=== PATIENT | male | born 1960 | race Caucasian/White ===

== ENCOUNTER → 2021-12-28 | Outpatient (CLI) | payer BC ==
--- NOTE | 2021-12-28 16:36 | CTL ---
EXAMINATION TYPE: CT Low Dose Lung DATE OF EXAM ORDERED: 12/28/2021 HISTORY: Personal history of tobacco use. Lung cancer screening CT DLP: 105.[address] CTDI: 3.1 mGy Automated exposure control for dose reduction was used. SCREENING VISIT: First screening visit COMPARISON: None TECHNIQUE: Low dose computed tomography scan was performed through the chest at 1 mm thick sections a nd reconstructed images in multiple planes at 1 mm and [address] DIAGNOSTIC QUALITY: Satisfactory FINDINGS: LUNG NODULES: No concerning pulmonary nodules. Calcified granuloma in the right apex. LUNGS: COPD: Severity: Mild Fibrosis: Severity: None Lymph nodes: None Other findings: None RIGHT PLEURAL SPACE: Effusion: None Calcification: None Thickening: None Pneumothorax: None LEFT PLEURAL SPACE: Effusion: None Calcification: None Thickening: None Pneumothorax: None HEART: Heart Size: Normal Coronary Calcification: Small Pericardial Effusion: None OTHER FINDINGS: Upper abdomen: None Bony thorax: None Supraclavicular region: None Other: None IMPRESSION: No concerning pulmonary nodules. Mild COPD changes. CT LUNG RAD AND CT CHEST RECOMMENDATION: Lung-Rad 1 Negative: Continue annual screening with LDCT in 12 months. S Modifier (other clinically significant findings): None
== END | disposition home or self-care (01) ==
LOC: RADCTMAIN 12:21
PROVIDERS: ATTEND Family Medicine
DX: J44.9 Chronic obstructive pulmonary disease, unspecified (principal)
CPT/HCPCS: 71271

== ENCOUNTER → 2024-03-05 | Outpatient (CLI) | payer BC ==
--- NOTE | 2024-03-05 14:03 | XR ---
EXAMINATION TYPE: XR chest 2V DATE OF EXAM: 03/05/2024 COMPARISON: NONE HISTORY: Shortness of breath TECHNIQUE: Frontal and lateral views of the chest are obtained. FINDINGS: Scattered senescent parenchymal changes noted. Hyperinflation compatible with COPD. No evidence for infiltrate. No evidence for atelectasis. Heart size is stable. Mediastinal structures are stable and grossly unremarkable. No evidence for hilar prominence. Degenerative changes dorsal spine. IMPRESSION: 1. No evidence for acute pulmonary disease. [facility], , 03/05/2024 2:01 PM
== END | disposition home or self-care (01) ==
LOC: RADXRYALE 13:30
PROVIDERS: ATTEND Physician Assistant
DX: R06.02 Shortness of breath (principal)
CPT/HCPCS: 71046

== ENCOUNTER → 2024-03-21 | Outpatient (CLI) | payer BC ==
--- NOTE | 2024-03-21 12:53 | CTL ---
EXAMINATION TYPE: CT Low Dose Lung DATE OF EXAM ORDERED: 03/21/2024 HISTORY: Nicotine dependence, current smoker, 23 pack-year history. Lung cancer screening CT DLP: 114.[address] CTDI: 3.1 mGy Automated exposure control for dose reduction was used. SCREENING VISIT: Second screening visit COMPARISON: CT Low Dose Lung 12/28/2021 TECHNIQUE: Low dose computed tomography scan was performed through the chest at 1 mm thick sections a nd reconstructed images in multiple planes at 1 mm and [address] DIAGNOSTIC QUALITY: Satisfactory FINDINGS: Nodules: Right upper lobe calcified granuloma measuring 6 mm. Stable 2 mm pulmonary nodule within the right mid lung abutting the major fissure (series 6, image 31 ). No new or enlarging pulmonary nodules. LUNGS: COPD: Severity: Minimal Fibrosis: Severity: None Lymph nodes: None Other findings: None RIGHT PLEURAL SPACE: Effusion: None Calcification: None Thickening: None Pneumothorax: None LEFT PLEURAL SPACE: Effusion: None Calcification: None Thickening: None Pneumothorax: None HEART: Heart Size: Normal Coronary Calcification: Small Pericardial Effusion: None OTHER FINDINGS: Upper abdomen: None Bony thorax: Mild multilevel degenerative disc disease. Supraclavicular region: None Other: Stable ascending thoracic aortic aneurysm measuring 4.1 cm. IMPRESSION: 1. No clinically significant pulmonary nodules. 2. Stable ascending thoracic aortic aneurysm measuring 4.[address] LUNG RAD AND CT CHEST RECOMMENDATION: Lung-Rad 2 Benign Appearance or Behavior: Continue annual sc reening with LDCT in 12 months. S Modifier (other clinically significant findings): S [facility], , 03/21/2024 12:51 PM
== END ==
LOC: RADCTMAIN 08:35
PROVIDERS: ATTEND Family Medicine
CPT/HCPCS: 71271